=== PATIENT | female | born 1945 ===

== ENCOUNTER 2018-06-20 13:46 | Outpatient (REF) | payer MEDICARE, BC, SELFPAY ==
[2018-06-20 21:11] LABS: ALT 40 U/L (12-78); AST 22 U/L (15-37); Alkaline Phosphatase 55 U/L (46-116); Anion Gap 9.7 mmol/L (3-11); BUN 25 mg/dL (7-18); Bilirubin, Total 0.5 mg/dL (0.2-1.0); CO2 27.3 mmol/L (21.0-32.0); CREATININE 1.18 mg/dL (0.55-1.02); Chloride 102 mmol/L (98-107); Cholesterol 246 mg/dL (50-200); Estimated GFR 45.15 (mL/min/1.73m2); Glucose 93 mg/dL (70-100); HDL Cholesterol 52 mg/dL (40-60); LDL CHOLESTEROL 177 mg/dL (<100); Potassium 4.8 mmol/L (3.5-5.1); Sodium 139 mmol/L (136-145); Total Protein 7.5 g/dL (6.4-8.2); Triglyceride 91 mg/dL (30-150)
== END 2018-06-20 14:06 ==
LOC: NCHCN 13:46
PROVIDERS: PCP Nurse Practitioner Family; Visit Provider Nurse Practitioner Family
DX: E78.5 Hyperlipidemia, unspecified (principal); I10 Essential (primary) hypertension; R25.2 Cramp and spasm; M79.606 Pain in leg, unspecified
CPT/HCPCS: 80053; 80061; 83721

== ENCOUNTER 2019-01-06 11:11 | Outpatient (REF) | payer MEDICARE, BC, SELFPAY ==
[2019-01-06 20:54] LABS: Anion Gap 11.9 mmol/L (3-11); BUN 20 mg/dL (7-18); C-Reactive Protein 0.06 mg/dL (0.0-0.3); CO2 25.1 mmol/L (21.0-32.0); CREATININE 1.06 mg/dL (0.55-1.02); Calcium 9.3 mg/dL (8.5-10.1); Chloride 103 mmol/L (98-107); Glucose 102 mg/dL (74-106); Potassium 4.5 mmol/L (3.5-5.1); Sodium 140 mmol/L (136-145)
[2019-01-06 21:47] LABS: ESR 18 mm/hr (0-30)
[2019-01-09 09:18] LABS: Cyclic Citrullinated Peptide <2.5 U/mL (<5.0)
== END 2019-01-06 11:31 ==
LOC: NCHCN 11:11
PROVIDERS: PCP Nurse Practitioner Family; Visit Provider Nurse Practitioner Family
DX: M79.641 Pain in right hand (principal); M79.642 Pain in left hand; N28.9 Disorder of kidney and ureter, unspecified; I10 Essential (primary) hypertension; E78.5 Hyperlipidemia, unspecified; M54.5 Low back pain; E66.9 Obesity, unspecified
CPT/HCPCS: 80048; 85652; 86200; 86140; 86431

== ENCOUNTER 2019-07-09 13:28 | Outpatient (REF) | payer MEDICARE, BC, SELFPAY ==
[2019-07-09 21:00] LABS: ALT 40 U/L (14-59); AST 24 U/L (15-37); Albumin 3.8 g/dL (3.4-5.0); Alkaline Phosphatase 45 U/L (46-116); BUN 26 mg/dL (7-18); Bilirubin, Total 0.5 mg/dL (0.2-1.0); CREATININE 1.23 mg/dL (0.55-1.02); Calcium 9.7 mg/dL (8.5-10.1); Calculated LDL 220 mg/dL (<100); Chloride 103 mmol/L (98-107); Cholesterol 293 mg/dL (<200); Estimated GFR 42.92 (mL/min/1.73m2); Glucose 100 mg/dL (74-106); HDL Cholesterol 49 mg/dL (40-60); Potassium 4.5 mmol/L (3.5-5.1); Sodium 138 mmol/L (136-145); Total Protein 7.2 g/dL (6.4-8.2); Triglyceride 123 mg/dL (<150)
== END 2019-07-09 13:48 ==
LOC: NCHCN 13:28
PROVIDERS: PCP Nurse Practitioner Family; Visit Provider Nurse Practitioner Family
DX: E78.5 Hyperlipidemia, unspecified (principal); I10 Essential (primary) hypertension; N28.9 Disorder of kidney and ureter, unspecified; E66.9 Obesity, unspecified
CPT/HCPCS: 80053; 80061

== ENCOUNTER 2020-06-21 14:29 | Outpatient (REF) | payer MEDICARE, BC, SELFPAY ==
[2020-06-21 21:14] LABS: ALT 48 U/L (14-59); AST 27 U/L (15-37); Albumin 4.1 g/dL (3.4-5.0); Alkaline Phosphatase 60 U/L (46-116); Anion Gap 10.3 mmol/L (3-11); BUN 25 mg/dL (7-18); Bilirubin, Total 0.6 mg/dL (0.2-1.0); CO2 26.7 mmol/L (21.0-32.0); CREATININE 1.2 mg/dL (0.55-1.02); Calcium 9.5 mg/dL (8.5-10.1); Calculated LDL 201 mg/dL (<100); Chloride 103 mmol/L (98-107); Cholesterol 280 mg/dL (<200); Estimated GFR 44.04 (mL/min/1.73m2); Glucose 97 mg/dL (74-106); HDL Cholesterol 55 mg/dL (40-60); Potassium 4.6 mmol/L (3.5-5.1); Sodium 140 mmol/L (136-145); Total Protein 7.8 g/dL (6.4-8.2); Triglyceride 123 mg/dL (<150)
== END 2020-06-21 14:30 | disposition home or self-care (01) ==
LOC: NCHCN 14:29
PROVIDERS: PCP Nurse Practitioner Family; Visit Provider Nurse Practitioner Family
DX: M79.641 Pain in right hand (principal); M79.642 Pain in left hand; N28.9 Disorder of kidney and ureter, unspecified; I10 Essential (primary) hypertension; E78.5 Hyperlipidemia, unspecified; N20.0 Calculus of kidney; E66.9 Obesity, unspecified
CPT/HCPCS: 80053; 80061

== ENCOUNTER 2020-12-26 19:17 | Outpatient (REF) | payer MEDICARE, BC, SELFPAY ==
[2020-12-26 19:52] LABS: Estimated GFR 54.35 (mL/min/1.73m2)
== END 2020-12-26 19:18 | disposition home or self-care (01) ==
LOC: NCHCN 19:17
PROVIDERS: PCP Nurse Practitioner Family; Visit Provider Nurse Practitioner Family
DX: I10 Essential (primary) hypertension (principal); N28.9 Disorder of kidney and ureter, unspecified; R20.0 Anesthesia of skin
CPT/HCPCS: 82565

== ENCOUNTER 2021-06-27 16:45 | Outpatient (REF) | payer MEDICARE, BC, SELFPAY ==
[2021-06-27 16:54] LABS: Anion Gap 10.2 mmol/L (3-11); BUN 27 mg/dL (7-18); CO2 24.8 mmol/L (21.0-32.0); Calcium 9.1 mg/dL (8.5-10.1); Chloride 104 mmol/L (98-107); Glucose 102 mg/dL (74-106); Potassium 4.2 mmol/L (3.5-5.1); Sodium 139 mmol/L (136-145)
== END 2021-06-27 16:46 | disposition home or self-care (01) ==
LOC: NCHCN 16:45
PROVIDERS: PCP Nurse Practitioner Family; Visit Provider Nurse Practitioner Family
DX: I10 Essential (primary) hypertension (principal); N28.9 Disorder of kidney and ureter, unspecified; R20.2 Paresthesia of skin; R07.9 Chest pain, unspecified; R60.0 Localized edema; E66.3 Overweight
CPT/HCPCS: 80048

== ENCOUNTER 2022-06-27 14:58 | Outpatient (REF) | payer MEDICARE, BC, SELFPAY ==
[2022-06-27 21:46] LABS: Absolute Basophil Count 0.06 10^3/uL (0.0-0.2); Absolute Eosinophil Count 0.14 10^3/uL (0.0-0.7); Absolute Lymphocyte Count 2.76 10^3/uL (1.2-3.4); Absolute Monocyte Count 0.63 10^3/uL (0.1-0.8); Absolute Neutrophil Count 2.14 10^3/uL (1.2-6.7); Eosinophils % 2.4; HCT 44.4 % (36.0-46.0); HGB 14.7 g/dL (11.2-15.7); Lymphocytes % 48.2; MCH 30.8 pg (27.0-33.0); MCHC 33.1 % (32.0-36.0); MCV 93 fL (80-95); MPV 10.8 fL (8.0-11.0); Neutrophils % 37.4; Platelet Count 182 10^3/uL (130-400); RBC 4.78 10^6/uL (3.93-5.22); RDW 12.5 % (11.7-14.6); RDW-SD 43.2 fL; WBC 5.73 10^3/uL (4.4-10.8)
[2022-06-27 22:06] LABS: ESR 28 mm/hr (0-30)
[2022-06-27 22:19] LABS: ALT 40 U/L (14-59); AST 26 U/L (15-37); Albumin 3.9 g/dL (3.4-5.0); Alkaline Phosphatase 60 U/L (46-116); Anion Gap 12.6 mmol/L (3-11); BUN 17 mg/dL (7-18); Bilirubin, Total 0.4 mg/dL (0.2-1.0); C-Reactive Protein 0.14 mg/dL (0.0-0.3); CO2 25.4 mmol/L (21.0-32.0); Calcium 9.9 mg/dL (8.5-10.1); Chloride 101 mmol/L (98-107); Creatine Kinase 69 U/L (26-192); Estimated GFR 58.75 (mL/min/1.73m2); Glucose 90 mg/dL (74-106); NT-proBNP 46 pg/mL (<300); Potassium 4.3 mmol/L (3.5-5.1); Sodium 139 mmol/L (136-145); TSH (W/Ref FT4) 1.42 uIU/mL (0.36-3.74); Total Protein 7.9 g/dL (6.4-8.2)
== END 2022-06-27 14:59 | disposition home or self-care (01) ==
LOC: NCHCN 14:58
PROVIDERS: PCP Nurse Practitioner Family; Visit Provider Nurse Practitioner Family
DX: R07.9 Chest pain, unspecified (principal)
CPT/HCPCS: 80053; 82550; 85652; 83880; 84443; 85025; 86140

== ENCOUNTER 2023-06-10 16:06 | Outpatient (REF) | payer MEDICARE, BC, SELFPAY ==
[2023-06-10 15:02] LABS: ALT 37 U/L (14-59); AST 23 U/L (15-37); Albumin 3.8 g/dL (3.4-5.0); Alkaline Phosphatase 59 U/L (46-116); Anion Gap 11.3 mmol/L (3-11); BUN 15 mg/dL (7-18); Bilirubin, Total 0.5 mg/dL (0.2-1.0); CO2 26.7 mmol/L (21.0-32.0); CREATININE 0.9 mg/dL (0.55-1.02); Calcium 9.4 mg/dL (8.5-10.1); Calculated LDL 206 mg/dL (<100); Chloride 103 mmol/L (98-107); Cholesterol 293 mg/dL (<200); Estimated GFR 66.26 (mL/min/1.73m2); Glucose 102 mg/dL (74-106); HDL Cholesterol 54 mg/dL (40-60); Potassium 4.8 mmol/L (3.5-5.1); Sodium 141 mmol/L (136-145); Total Protein 7.6 g/dL (6.4-8.2); Triglyceride 165 mg/dL (<150)
== END 2023-06-10 16:07 | disposition home or self-care (01) ==
LOC: NCHCN 16:06
PROVIDERS: PCP Nurse Practitioner Family; Visit Provider Nurse Practitioner Family
DX: E78.5 Hyperlipidemia, unspecified (principal); I10 Essential (primary) hypertension
CPT/HCPCS: 80053; 80061

== ENCOUNTER 2023-09-17 15:06 | Outpatient (REF) | payer MEDICARE, BC, SELFPAY ==
--- OUTSIDE RECORDS SUMMARY | 2023-09-17 15:08 | XMS_ITS | Continuity of Care Document ---
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 Name Role Phone BISHNU OH APRN Primary Care Physician Encounter [facility] NBR [id number] Date(s): 07/27/22 - 07/27/[address] [id number]- [place] Discharge Disposition: Home or Self Care Attending Physician: Izabella Duron MD, FACC, FACP, FASNC, FASE, FSCCT Admitting Physician: Izabella Duron MD, FACC, FACP, FASSAYDA, FASJocelyne, FSCCT Referring Physician: BISHNU OH APRN Allergies, Adverse Reactions, Alerts Substance Reaction Severity Status erythromycin Unknown Active sulfa drugs Unknown Active iodine Unknown Mild Active Betadine Unknown Active Influenza Virus Vaccine Unknown Severe Acti ve Latex Unknown Moderate Active Geranium Unknown Severe Active Dust Unknown Active Medications calcium (as carbonate) 500 mg oral tablet 0 Refill(s) Start Date: 02/28/22 Status: Ordered doxycycline hyclate 100 mg oral capsule 100 mg = 1 cap, Oral, BID, # 14 cap, 0 Refill(s) Start Date: 02/28/22 Stop Date: 03/07/22 Status: Ordered Fish Oil oral capsule 1 cap, Oral, Daily, # 100 cap, 0 Refill(s) Start Date: 02/28/22 Status: Ordered losartan 100 mg oral tablet 0 Refill(s) Start Date: 02/28/22 Status: Ordered ProAir HFA 90 mcg/inh inhalation aerosol 1 puffs, Inhale, every 4 hr, PRN as needed for wheezing, # 8.5 g, 0 Refill(s) Start Date: 02/28/22 Status: Ordered Vital Signs Most recent to oldest [Reference Range]: 1 Weight 79 kg (07/25/22 2:45 PM) Height 168 cm (07/25/22 2:45 PM) Social History Social History Type Response Tobacco Never tobacco user T obacco Use:. Sex Patient Care team information Care Team Personnel Name: BISHNU OH APRN Position: No Access Member Role: Primary Care Physician Address: Address: [address] [place] [address]- Care Team Related Persons Name: LINSEY BAIN
--- OUTSIDE RECORDS SUMMARY | 2023-09-17 15:08 | XMS_ITS | Continuity of Care Document ---
Author Organization [facility] Address [address] [place] [id number] Encounter LTTL_NH FIN NBR [id number] Date(s): 02/28/22 - 02/28/[address] [id number] Encounter Diagnosis Acute bronchitis(Discharge Diagnosis) - 02/28/22 Discharge Disposition: Home or Self Care Attending Physician: Kaylee Miguel MD Admitting Physician: Kaylee Miguel MD Allergies, Adverse Reactions, Alerts Substance Reaction Severity Status erythromycin Unknown Active sulfa drugs Unknown Active Betadine Unknown Active Dust Unknown Active Functional Status 02/28/22 Other exposure to Infectious Disease COV ID-19 Symptoms Present Medications calcium (as carbonate) 500 mg oral [...] 0 Refill(s) Start Date: 02/28/22 Status: Ordered Mental Status 02/28/22 Eye Opening Response [place] Spontaneous ly Best Verbal Response [place] Oriented Best Motor Response [place] Obeys comman ds [place] Coma Score 15 Results Laboratory List Name Date SARS-CoV-2 (Covid-19) AG (Bernice) POCT Most recent to oldest [Reference Range]: 1 SARS-CoV or CoV-2 (COVID-19) Ag (Bernice) [Negative] Negative (02/28/22 9:02 AM) Employed in healthcare? Unknown *NA* (02/28/22 9:02 AM) Symptomatic as defined by CDC? Unknown *NA* (02/28/22 9:02 AM) Date of onset (Lab) Unknown *NA* (02/28/22 9:02 AM) Hospitalized due to COVID-19? Unknown *NA* (02/28/22 9:02 AM) In ICU? Unknown *NA* (02/28/22 9:02 AM) Group care resident? Unknown *NA* (02/28/22 9:02 AM) status? Unknown *NA* (02/28/22 9:02 AM) Radiology Reports * Exam Date Time Procedure Performing Provider Status 02/28/22 9:50 AM XR Chest 2 Views Alma Molina; Melissa (Verified) Notes: (XR Chest 2 Views) Reason For Exam: cough XR Chest 2 Views EXAM DESCRIPTION: XR Chest 2 Views 02/28/2022 INDICATION: COUGH COMPARISON: None available FINDINGS: Clear lungs with no focal infiltrate or pulmonary edema. Normal cardiomediastinal contour. Normal pleural margins with no pleural effusion or pneumothorax. Spondylotic changes of the dorsal spine. IMPRESSION: No active chest disease. JOB #: [id number] Final Signed by: Julio Spence MD Signed (Electronic Signature): 02/28/2022 10:04 am Vital Signs Most recent to oldest [Reference Range]: 1 2 Temperature Temporal Artery [36-38 Deg C ] 36.4 Deg C (02/28/22 8:48 AM) Peripheral Pulse Rate [60-100 bpm] 96 bp m (02/28/22 10:30 AM) 108 bpm *HI* (02/28/22 8:48 AM) Respiratory Rate [12-24 br/min] 18 br/mi n (02/28/22 10:30 AM) 20 br/min (02/28/22 8:48 AM) Blood Pressure [90-140/60-90 mmHg] 126/7 2mmHg (02/28/22 10:30 AM) 122/88mmHg (02/28/22 8:48 AM) Weight Dosing 77.00 kg (02/28/22 9:07 AM) Weight Estimated 77.00 kg (02/28/22 8:48 AM) Height/Length Dosing 170.000 cm (02/28/22 9:07 AM) Height/Length Estimated 170.000 cm (02/28/22 8:48 AM) Social History Social History Type Response Tobacco Never tobacco user T obacco Use:. Sex Hospital Discharge Instructions Patient Education 02/28/2022 09:43:06 Acute Bronchitis, Adult Acute Bronchitis, Adult Acute bronchitis is sudden or acute swelling of the air tubes (bronchi) in the lungs. Acute bronchitis causes these tubes to fill with mucus, which can make it hard to breathe. It can also cause coughing or wheezing. In adults, acute bronchitis usually goes away within 2 weeks. A cough caused by bronchitis may lastup to 3 weeks. Smoking, allergies, and asthma can make the condition worse. What are the causes? This condition can be caused by germs and by substances that irritate the lungs, including: ??? Cold and flu viruses. The most common cause of this condition is the virus that causes the common cold. ??? Bacteria. ??? Substances that irritate the lungs, including: ??? Smoke from cigarettes and other forms of tobacco. ??? Dust and pollen. ??? Fumes from chemical products, gases, or burned fuel. ??? Other materials that pollute indoor or outdoor air. ??? Close contact with someone who has acute bronchitis. What increases the risk? The following factors may make you more likely to develop this condition: ??? A weak body's defense system, also called the immune system. ??? A condition that affects your lungs and breathing, such as asthma. What are the signs or symptoms? Common symptoms of this condition include: ??? Lung and breathing problems, such as: ??? Coughing. This may bring up clear, yellow, or green mucus from your lungs (sputum). ??? Wheezing. ??? Having too much mucus in your lungs (chest congestion). ??? Having shortness of breath. ??? A fever. ??? Chills. ??? Aches and pains, including: ??? Tightness in your chest and other body aches. ??? A sore throat. How is this diagnosed? This condition is usually diagnosed based on: ??? Your symptoms and medical history. ??? A physical exam. You may also have other tests, including tests to rule out other conditions, such as pneumonia. These tests include: ??? A test of lung function. ??? Test of a mucus sample to look for the presence of bacteria. ??? Tests to check the oxygen level in your blood. ??? Blood tests. ??? Chest X-ray. How is this treated? Most cases of acute bronchitis clear up over time without treatment. Your health care provider may recommend: ??? Drinking more fluids. This can thin your mucus, which may improve your breathing. ??? Using a device that gets medicine into your lungs (inhaler) to help improve breathing and control coughing. ??? Using a vaporizer or a humidifier. These are machines that add water to the air to help you breathe better. ??? Taking a medicine for a fever. ??? Taking a medicine that thins mucus and clears congestion (expectorant). ??? Taking a medicine that prevents or stops coughing (cough suppressant). Follow these instructions at home: Activity ??? Get plenty of rest. ??? Return to your normal activities as told by your health care provider. Ask your health care provider what activities are safe for you. Lifestyle ??? Drink enough fluid to keep your urine pale yellow. ??? Do not drink alcohol. ??? Do not use any products that contain nicotine or tobacco, such as cigarettes, e-cigarettes, andchewing tobacco. If you need help quitting, ask your health care provider. Be aware that: ??? Your bronchitis will get worse if you smoke or breathe in other people's smoke (secondhand smoke). ??? Your lungs will heal faster if you quit smoking. General instructions ??? Take ryzy-ftp-jhkmbgl and prescription medicines only as told by your health care provider. ??? Use an inhaler, vaporizer, or humidifier as told by your health care provider. ??? If you have a sore throat, gargle with a salt-water mixture 3???4 times a day or as needed. To make a salt-water mixture, completely dissolve ?1 tsp (3???6 g) of salt in 1 cup (237 mL) of warm water. ??? Take two teaspoons of honey at bedtime to lessen coughing at night. ??? Keep all follow-up visits as told by your health care provider. This is important. How is this prevented? To lower your risk of getting this condition again: ??? Wash your hands often with soap and water. If soap and water are not available, use hand atlassian administrator. ??? Avoid contact with people who have cold symptoms. ??? Try not to touch your mouth, nose, or eyes with your hands. ??? Avoid places where there are fumes from chemicals. Breathing these fumes will make your condition worse. ??? Get the flu shot every year. Contact a health care provider if: ??? Your symptoms do not improve after 2 weeks of treatment. ??? You vomit more than once or twice. ??? You have symptoms of dehydration such as: ??? Dark urine. ??? Dry skin or eyes. ??? Increased thirst. ??? Headaches. ??? Confusion. ??? Muscle cramps. Get help right away if you: ??? Cough up blood. ??? Feel pain in your chest. ??? Have severe shortness of breath. ??? Faint or keep feeling like you are going to faint. ??? Have a severe headache. ??? Have fever or chills that get worse. These symptoms may represent a serious problem that is an emergency. Do not wait to see if the symptoms will go away. Get medical help right away. Call your local emergency services (911 in the [place] Do not drive yourself to the hospital. Summary ??? Acute bronchitis is sudden (acute) inflammation of the air tubes (bronchi) between the windpipeand the lungs. In adults, acute bronchitis usually goes away within 2 weeks, although coughing may last 3 weeks or longer. ??? Take qiio-cwt-gtuiaky and prescription medicines only as told by your health care provider. ??? Drink enough fluid to keep your urine pale yellow. ??? Contact a health care provider if your symptoms do not improve after 2 weeks of treatment. ??? Get help right away if you cough up blood, faint, or have chest pain or shortness of breath. This information is not intended to replace advice given to you by your health care provider. Make sure you discuss any questions you have with your health care provider. Document Revised: 12/28/2020 Document Reviewed: 08/21/2019 [employer] Patient Education ?? 2021 [employer]. Follow Up Care 02/28/2022 08:48:18 With:primary care physician Address: When:3 to 5 days Physician Emergency department Note * Kaylee Miguel MD: PERFORM Event Display: ED Note Physician Authored Date: [id number] RICCI VENEGAS :1945 Age:77 years Sex:Female Visit Date:02/28/2022 Basic Information Time Seen: Kaylee Miguel MD / 02/28/2022 09:35 Chief Complaint Pt c/o cough and congestion for past week. Thinks she has PNA. History Of Present Illness: This patient is a 77-year-old female presents emergency department today for evaluation of cough.??Patient states that she started having cough about 1 week ago and last night started having some production of greenish colored sputum.?? She had a mild fever last night but otherwise has not had sustained fever.?? The patient??has not had any known sick contacts. ??She states that??the way she feels now feels similar to when she had pneumonia in the past. ??She has not had any lower extremity swelling. ??She denies any prior??lung or heart disease.?? No vomiting or diarrhea.?? States she does have some throat pain due to the coughing. Review of Systems: CONSTITUTIONAL:??+fevers or chills. EYES:??No change in vision. ENT:??+sore throat. ??No headache. ??No neck pain. CARDIOVASCULAR:??No chest pain, palpitations or passing out episodes. RESPIRATORY:??+cough, + shortness of breath no hemoptysis. GI:??No abdominal pain. No nausea, vomiting or diarrhea. :??No change in urination. SKIN:??No rash. NEUROLOGIC:??No numbness or weakness. MUSCULOSKELETAL:??No swelling or pain. PSYCHIATRIC:??No depression. LYMPH:??No swelling. Review of systems otherwise as stated in HPI Physical Exam Vitals & Measurements T:??36.4?C ??(Temporal Artery)?? HR:??108??(Peripheral)?? RR:??20?? BP:??122/88?? SpO2:??96%?? HT:??170.000??cm?? WT:??77.00??kg??(Estimated)?? General: ??AAOx3. ??GCS15. ??No acute distress, answering questions appropriately. Head: ??Atraumatic; Normocephalic Eye: ??PERRLA; EOMI; no scleral icterus / pallor ENT: moist mucous membranes; no epistaxis. No stridor. Neck: ??Active ROM intact; Trachea Midline. ??No JVD. ??No meningismus appreciated. Skin: Warm, dry Chest:??Coarse cough,??wheezing with rhonchi bilaterally. Heart: RRR; no murmur, rub, or gallop Abdomen: ??Soft, non-tender, non-distended, no guarding, rebound, or rigidity. No Hepatosplenomegaly Musculoskeletal: ??ROM intact of all extremities/joints without discomfort. ??Sensation grossly intact throughout. ??No obvious deformity. ??Strength Intact 5/5 throughout. ?? Neuro: Alert and oriented. Answering questions appropriately with clear speech. Motor and sensory grossly normal in all extremities.?? Medical Decision Making: Patient is 77-year-old female presents today for evaluation of cough. ??The patient was concerned that she developed mild pneumonia because she had some greenish colored sputum today.?? On exam the patient had wheezing and rhonchi bilaterally. ??I did do a chest x-ray which was negative. ??COVID test was also negative.?? My suspicion is that this likely started as a viral illness however given her increased??production of sputum in addition to her physical exam I think it would be reasonable totreat her for bronchitis.?? Patient will be given a prescription for doxycycline.?? The patient wasgiven an albuterol treatment here in the emergency department and on review auscultation prior to discharge she??is significantly more clear. ??I will also give her a prescription for??ProAir inhaler.?? She was comfortable with plan for discharge home.?? She has not had any episodes of hypoxia??andher ambulatory O2 sat was 96 to 97%. Procedure No Qualifying Data Assessment/Plan 1.??Acute bronchitis??J20.9 Ordered: doxycycline hyclate 100 mg oral capsule, 100 mg = 1 cap, Oral, BID, # 14 cap, 0 Refill(s) ?? Orders: Discharge Patient, 02/28/22 10:45:00 EST Patient Education Acute Bronchitis, Adult Follow Up With When Contact Information primary care physician Within 3 to 5 days Additional Instructions: Medication Reconciliation New Prescription doxycycline (doxycycline hyclate 100 mg oral capsule)1 Capsules Oral (given by mouth) 2 times a dayfor 7 Days. Refills: 0. ?? Unchanged calcium carbonate (calcium (as carbonate) 500 mg oral tablet) ?? losartan (losartan 100 mg oral tablet) ?? omega-3 polyunsaturated fatty acids (Fish Oil oral capsule)1 Capsules Oral (given by mouth) every day. Problem List/Past Medical History Ongoing No qualifying data Historical No qualifying data Medication Administration Given albuterol, 2.5 mg, NEB Allergies Betadine Dust erythromycin sulfa drugs Social History Electronic Cigarette/Vaping Electronic Cigarette Use: Never. Tobacco Never tobacco user Tobacco Use:. Diagnostic Results XR Chest 2 Views 02/28/2022 10:06 EST XR Chest 2 Views ?? 02/28/22 10:04:07 EXAM DESCRIPTION: XR Chest 2 Views ?? 02/28/2022 ? INDICATION: COUGH ?? COMPARISON: None available ?? FINDINGS: Clear lungs with no focal infiltrate or pulmonary edema. Normal cardiomediastinal contour. Normal pleural margins with no pleural effusion or pneumothorax. Spondylotic changes of the dorsal spine. ?? IMPRESSION: No active chest disease. ? JOB #: [id number] Electronically Signed By: ?? Signed By: Julio Spence MD Lab Results Infectious Disease?? LATEST RESULTS?? SARS-CoV or CoV-2 (COVID-19) Ag (Bernice)?? 02/28/22 09:02?? Negative?? Employed in healthcare??? 02/28/22 09:02?? Unknown?? Symptomatic as defined by CDC??? 02/28/22 09:02?? Unknown?? Date of onset (Lab)?? 02/28/22 09:02?? Unknown?? Hospitalized due to COVID-19??? 02/28/22 09:02?? Unknown?? In ICU??? 02/28/22 09:02?? Unknown?? Group care resident??? 02/28/22 09:02?? Unknown?? status??? 02/28/22 09:02?? Unknown? Electronically Signed on 03/01/22 08:16 AM Kaylee Miguel MD Emergency department Discharge instructions * Kaylee Miguel MD: PERFORM Event Display: ED Discharge Information Authored Date: [id number] RICCI VENEGAS :1945 Age:77 years Sex:Female Visit Date:02/28/2022 Discharge Instructions We would like to thank you for allowing us to assist you with your healthcare needs. The following includes patient education materials and information regarding your injury/illness. Diagnosis from Today's Visit Acute bronchitis Discharge Vitals Temperature??(Temporal Artery) 97.5 ??F (36.4 ??C) Heart Rate??(Peripheral) 108 Respiratory Rate?? 20 Blood Pressure?? 122/88?? Height?? 66.93 in (170.000 cm) Weight??(Estimated) 169.78 lb (77.00 kg) Allergies Betadine Dust erythromycin sulfa drugs What to Do Next You Need to Schedule the Following Appointments Follow Up with??primary care physician When:??Within 3 to 5 days You were treated today on an emergency basis; it may be epperson to contact your primary care provider to notify them of your visit today. You may have been referred to your regular doctor or a specialist, please follow up as instructed. If your condition worsens or you can't get in to see the doctor, contact the Emergency Department. Medications What How Much When Why Instructions Next Dose New doxycycline (doxycycline hyclate 100 mg oral capsule) 1 Capsules Oral (given by mouth) 2 times a day Acute bronchitis Duration: 7 Days Printed Prescription Unchanged calcium carbonate (calcium (as carbonate) 500 mg oral tablet) Unchanged losartan (losartan 100 mg oral tablet) Unchanged omega-3 polyunsaturated fatty acids (Fish Oil oral capsule) 1 Capsules Oral (given by mouth) Every day Education Materials Acute Bronchitis, Adult Acute bronchitis is sudden or acute swelling of the air tubes (bronchi) in the lungs. Acute bronchitis causes these tubes to fill with mucus, which can make it hard to breathe. It can also cause coughing or wheezing. In adults, acute bronchitis usually goes away within 2 weeks. A cough caused by bronchitis may lastup to 3 weeks. Smoking, allergies, and asthma can make the condition worse. What are the causes? This condition can be caused by germs and by substances that irritate the lungs, including: ? Cold and flu viruses. The most common cause of this condition is the virus that causes the common cold. ? Bacteria. ? Substances that irritate the lungs, including: ? Smoke from cigarettes and other forms of tobacco. ? Dust and pollen. ? Fumes from chemical products, gases, or burned fuel. ? Other materials that pollute indoor or outdoor air. ? Close contact with someone who has acute bronchitis. What increases the risk? The following factors may make you more likely to develop this condition: ? A weak body's defense system, also called the immune system. ? A condition that affects your lungs and breathing, such as asthma. What are the signs or symptoms? Common symptoms of this condition include: ? Lung and breathing problems, such as: ? Coughing. This may bring up clear, yellow, or green mucus from your lungs (sputum). ? Wheezing. ? Having too much mucus in your lungs (chest congestion). ? Having shortness of breath. ? A fever. ? Chills. ? Aches and pains, including: ? Tightness in your chest and other body aches. ? A sore throat. How is this diagnosed? This condition is usually diagnosed based on: ? Your symptoms and medical history. ? A physical exam. You may also have other tests, including tests to rule out other conditions, such as pneumonia. These tests include: ? A test of lung function. ? Test of a mucus sample to look for the presence of bacteria. ? Tests to check the oxygen level in your blood. ? Blood tests. ? Chest X-ray. How is this treated? Most cases of acute bronchitis clear up over time without treatment. Your health care provider may recommend: ? Drinking more fluids. This can thin your mucus, which may improve your breathing. ? Using a device that gets medicine into your lungs (inhaler) to help improve breathing and control coughing. ? Using a vaporizer or a humidifier. These are machines that add water to the air to help you breathebetter. ? Taking a medicine for a fever. ? Taking a medicine that thins mucus and clears congestion (expectorant). ? Taking a medicine that prevents or stops coughing (cough suppressant). Follow these instructions at home: Activity ? Get plenty of rest. ? Return to your normal activities as told by your health care provider. Ask your health care provider what activities are safe for you. Lifestyle ? Drink enough fluid to keep your urine pale yellow. ? Do not drink alcohol. ? Do not use any products that contain nicotine or tobacco, such as cigarettes, e- cigarettes, and chewing tobacco. If you need help quitting, ask your health care provider. Be aware that: ? Your bronchitis will get worse if you smoke or breathe in other people's smoke (secondhand smoke). ? Your lungs will heal faster if you quit smoking. General instructions ? Take dumd-oue-vceqmhi and prescription medicines only as told by your health care provider. ? Use an inhaler, vaporizer, or humidifier as told by your health care provider. ? If you have a sore throat, gargle with a salt-water mixture 3???4 times a day or as needed. To makea salt-water mixture, completely dissolve ?1 tsp (3???6 g) of salt in 1 cup (237 mL) of warm water. ? Take two teaspoons of honey at bedtime to lessen coughing at night. ? Keep all follow-up visits as told by your health care provider. This is important. How is this prevented? To lower your risk of getting this condition again: ? Wash your hands often with soap and water. If soap and water are not available, use hand atlassian administrator. ? Avoid contact with people who have cold symptoms. ? Try not to touch your mouth, nose, or eyes with your hands. ? Avoid places where there are fumes from chemicals. Breathing these fumes will make your condition worse. ? Get the flu shot every year. Contact a health care provider if: ? Your symptoms do not improve after 2 weeks of treatment. ? You vomit more than once or twice. ? You have symptoms of dehydration such as: ? Dark urine. ? Dry skin or eyes. ? Increased thirst. ? Headaches. ? Confusion. ? Muscle cramps. Get help right away if you: ? Cough up blood. ? Feel pain in your chest. ? Have severe shortness of breath. ? Faint or keep feeling like you are going to faint. ? Have a severe headache. ? Have fever or chills that get worse. These symptoms may represent a serious problem that is an emergency. Do not wait to see if the symptoms will go away. Get medical help right away. Call your local emergency services (911 in the [place] Do not drive yourself to the hospital. Summary ? Acute bronchitis is sudden (acute) inflammation of the air tubes (bronchi) between the windpipe andthe lungs. In adults, acute bronchitis usually goes away within 2 weeks, although coughing may last3 weeks or longer. ? Take sdwe-efa-dktweju and prescription medicines only as told by your health care provider. ? Drink enough fluid to keep your urine pale yellow. ? Contact a health care provider if your symptoms do not improve after 2 weeks of treatment. ? Get help right away if you cough up blood, faint, or have chest pain or shortness of breath. This information is not intended to replace advice given to you by your health care provider. Make sure you discuss any questions you have with your health care provider. Document Revised: 12/28/2020 Document Reviewed: 08/21/2019 [employer] Patient Education ?? 2021 [employer] Tests Performed Radiology XR Chest 2 Views 02/28/2022 10:06 EST Medications and Immunizations Administered Given albuterol, 2.5 mg, NEB Lab Test Name Test Result Date/Time SARS-CoV or CoV-2 (COVID-19) Ag (Bernice) Negative 02/28/2022 09:02 EST Employed in healthcare? Unknown 02/28/2022 09:02 EST Symptomatic as defined by CDC? Unknown 02/28/2022 09:02 EST Date of onset (Lab) Unknown 02/28/2022 09:02 EST Hospitalized due to COVID-19? Unknown 02/28/2022 09:02 EST In ICU? Unknown 02/28/2022 09:02 EST Group care resident? Unknown 02/28/2022 09:02 EST status? Unknown 02/28/2022 09:02 EST Patient/Vascular Technician Signature Patient Name:RICCI VENEGAS I have received this information and my questions have been answered. Patient/Vascular Technician Name: Patient/Vascular Technician Signature: Relationship to Patient: Witness Name/Signature: Date: Electronically Signed on: 02/28/2022 10:44 ESTSigned by:AF XR Chest 2 Views * Julio Spence MD: VERIFY, VERIFY Event Display: Report EXAM DESCRIPTION: XR Chest 2 Views 02/28/2022 INDICATION: COUGH COMPARISON: None available FINDINGS: Clear lungs with no focal infiltrate or pulmonary edema. Normal cardiomediastinal contour. Normal pleural margins with no pleural effusion or pneumothorax. Spondylotic changes of the dorsal spine. IMPRESSION: No active chest disease. JOB #: [id number] Final Signed by: Julio Spence MD Signed (Electronic Signature): 02/28/2022 10:04 am
--- OUTSIDE RECORDS SUMMARY | 2023-09-17 15:09 | XMS_ITS | Encounter Summary ---
Author Organization [facility] Address [address] [place] [address] Care Team Providers Care Charge Loader Name Role Phone Unknown, Provider Primary Care Provider Encounter Details Date Type Department Care Team (Late st Contact Info) Description 06/29/2016 Results Only [facility] [phone] Angelito Jules, [address] [place], [place] [id number] Social History Tobacco Use Types Packs/Day Years Used Date Smoking Tobacco: Never Assessed Sex and Gender Information Value Date Recorded Sex Assigned at Not on file Gender Identity Not on file Sexual Orientation Not on file documented as of this encounter Plan of Treatment Not on file documented as of this encounter Procedures Procedure Name Priority Date/Time Associated Diagnosis Comments SURGICAL PATHOLOGY Routine 06/29/2016 9:25 EDT documented in this encounter Results * SURGICAL PATHOLOGY (06/29/2016 9:25 EDT) Pathology Report: SURGICAL PATHOLOGY REPORT Reports generated via electronic interface contain original data; however they are lacking the format of the original report. Caution should be taken when reading/interpreting unformatted reports. Name: ? MORENITA HARDIN ? Accession #: ? [id number] ? : ? 1945 (Age: 71) ??F ? Collect Date: ? 06/29/2016 ? Location: ? [facility] ? Receive Date: ? 07/02/2016 ? Provider: ANGELITO JULES DO Copy to: LANETTE DIAZ MD ? Final Pathologic Diagnosis: SKIN OF CHEEK, RIGHT MID, SHAVE BIOPSY: - Actinic keratosis, hypertrophic type. - Actinic keratosis present at peripheral and deep tissue edges. Microscopic Description: The stratum corneum is markedly thickened by orthohyperkeratosis and confluent parakeratosis. ??The epidermis is hyperplastic with expansion of the stratum spinosum by enlarged keratinocytes with abundant glassy eosinophilic cytoplasm. The basal keratinocytes show a variable degree of nuclear atypia including enlargement, dispolarity, and overlap. ??The dermis is marked by solar elastosis, vascular ectasia, and a lymphohistiocytic infiltrate. ??(Dr. Ta)/[facility] Document reviewed and electronically signed by: COSTA TA MD Report ??Date: 07/04/2016 20:33 By the signature above, the attending physician certifies that he/she has personally conducted a gross and/or microscopic examination of the described specimens and rendered or confirmed the above diagnosis. Specimen(s) Received: Right mid cheek Clinical History: Non-healing skin lesion, h/o fdc sun exposure; clinical diagnosis code: D49.2 Gross Description: ? Received in formalin labelled with proper patient identification (initials L, A) and right mid cheek are three irregular shaves of granular maurice skin (0.6 x 0.2 x 0.1 cm, 0.7 x 0.2 x 0.1 cm and 1.0 x 0.9 x 0.1 cm). The margins of all three skins are inked blue. The specimen is entirely submitted in 1 (largest shave, trisected) and 2 (smaller shaves, submitted in toto). MAYURI Maria ([facility]) 07/03/2016 11:16 AM End of Report [facility] 06/29/2016 9:25 EDT 07/02/2016 9:25 EDT Angelito Jules DO PATHOLOGY ORDER FRANCISCO J [facility] [address] [place] [address] documented in this encounter Visit Diagnoses Not on filedocumented in this encounter Care Teams Charge Loader Relationship Specialty Start Date End Date Unknown, Provider, PCP - General 07/03/16 documented as of this encounter
--- OUTSIDE RECORDS SUMMARY | 2023-09-17 15:09 | XMS_ITS | Referral Summary ---
Author Organization [facility] Address [address] [place] [address] Care Team Providers Care Studio Receptionist Name Role Phone Unknown, Provider Primary Care Provider Social History Tobacco Use Types Packs/Day Years Used Date Smoking Tobacco: Never Assessed Sex and Gender Information Value Date Recorded Sex Assigned at Not on file Gender Identity Not on file Sexual Orientation Not on file Plan of Treatment Not on file Care Teams Studio Receptionist Relationship Specialty Start Date End Date Unknown, Provider, PCP - General 07/03/16
--- OUTSIDE RECORDS SUMMARY | 2023-09-17 15:09 | XMS_ITS | Encounter Summary ---
Author Organization [facility] Address [address] [place] [address] Care Team Providers Care Poker Prop Player Name Role Phone Unavailable Primary Care Provider Unavailabl e Encounter Details Date Type Department Care Team (Late st Contact Info) Description 01/16/2012 Results Only [facility] - [facility] [address] [place] [address] Jacque Goodwin MD [address] [place] [address] Social History Tobacco Use Types Packs/Day Years Used Date Smoking Tobacco: Never Assessed Sex and Gender Information Value Date Recorded Sex Assigned at Not on file Gender Identity Not on file Sexual Orientation Not on file documented as of this encounter Plan of Treatment Not on file documented as of this encounter Procedures Procedure Name Priority Date/Time Associated Diagnosis Comments PAP TEST- RESULT ONLY Routine 01/16/2012 0:00 EST documented in this encounter Results * PAP TEST- RESULT ONLY (01/16/2012 0:00 EST) Pathology Report: CYTOPATHOLOGY REPORT Reports generated via electronic interface contain original data; however they are lacking the format of the original report. Caution should be taken when reading/interpreti ng unformatted reports. Name: ? MORENITA HARDIN ? Accession #: ? [id number] ? : ? 1945 (Age: 67) ??F ?Collect Date: ? 01/16/2012 ? Location: ? [facility] ? Receive Date: ? 01/17/2012 ? Provider: JACQUE GOODWIN MD Copy to: ? Final Report SPECIMEN ADEQUACY ? Satisfactory for Evaluation - transformation zone component present - scant squamous epithelial component secondary to excessive inflammation GENERAL CATEGORIZATION ? Negative for Intraepithelial Lesion or Malignancy ?? Menstrual/Pregnanc y Status: ??Post Menopausal Other: Additional clinical information: hasn't had pap in >10 years Specimen/Source: ??Pap Test, Cervix/Endocervix, ThinPrep Imaging System with manual evaluation Document reviewed and electronically signed by: ? MENDOZA Landin(ASCP) ? Report ??Date: 01/24/2012 13:08 HPV with Pap Test ? Date Ordered: ? 01/24/2012 ? Status: ?? Signed Out ?Date Complete: ? 01/28/2012 ? By: ??System Interface ? Date Reported: ? 01/28/2012 ? Interpretation RESULT: Negative for HPV. No E6 or E7 mRNA is detected from HPV types 16,18,31,33,35, 39,45,51,52,56,58, 59,66, and 68 by angular js developer mediated amplification. Comments Document reviewed and electronically signed by: ? System Interface ? Report date: 01/28/2012 By the signature above, the attending physician certifies that he/she has personally conducted a gross and/or microscopic examination of the described specimens and rendered or confirmed the above diagnosis. End of Report [facility] 01/16/2012 01/17/2012 Jacque Goodwin MD PATHOLOGY ORDERABLES Performing Organization Address City/State/[facility] Co de Phone Number [facility] [address] [place] [address] documented in this encounter Visit Diagnoses Not on filedocumented in this encounter
--- OUTSIDE RECORDS SUMMARY | 2023-09-17 15:09 | XMS_ITS | Encounter Summary ---
Author Organization [facility] Address [address] [place] [address] Care Team Providers Care Dust Collector Attendant Name Role Phone Unavailable Primary Care Provider Unavailabl e Encounter Details Date Type Department Care Team (Latest Contact Info) Description 06/29/2016 11:38 EDT - 06/29/2016 23:59 EDT Hospital Encounter [address] [address] Unknown, Provider, Discharge Disposition: Home or Self Care Social History Tobacco Use Types Packs/Day Years Used Date Smoking Tobacco: Never Assessed Sex and Gender Information Value Date Recorded Sex Assigned at Not on file Gender Identity Not on file Sexual Orientation Not on file documented as of this encounter Discharge Disposition Disposition Code Departure Means Destination Home or Self Custodial documented in this encounter Plan of Treatment Not on file documented as of this encounter Visit Diagnoses Not on filedocumented in this encounter
--- OUTSIDE RECORDS SUMMARY | 2023-09-17 15:09 | XMS_ITS | Encounter Summary ---
Author Organization [facility] Address [address] [place] [address] Care Team Providers Care County Home Demonstrator Name Role Phone Unknown, Provider Primary Care Provider Encounter Details Date Type Department Care Team (Late st Contact Info) Description 01/07/2019 Lab Requisition [facility] Pathology & Laboratory Medicine - [address] [address] Unknown, Provider, Social History Tobacco Use Types Packs/Day Years Used Date Smoking Tobacco: Never Assessed Sex and Gender Information Value Date Recorded Sex Assigned at Not on file Gender Identity Not on file Sexual Orientation Not on file documented as of this encounter Plan of Treatment Not on file documented as of this encounter Procedures Procedure Name Priority Date/Time Associated Diagnosis Comments [facility] Today 01/06/2019 10:45 EST [facility] ANTIBODIES Today 01/06/2019 10:45 EST RHEUMATOID FACTOR Today 01/06/2019 10: 45 EST documented in this encounter Results * HOLD SST (01/06/2019 10:45 EST) Hold Hold 01/07/2019 17:30 EST [facility] Blood VENOUS BLOOD / Unknown 01/06/2019 10:45 EST 01/07/2019 16:24 EST Provider Unknown LAB INFO SERVICE AND SUPPORT & PHONE RESULT [facility] [address] [place] [address] * RHEUMATOID FACTOR (01/06/2019 10:45 EST) Rheumatoid Factor 10.0 <12.5 IU/mL 01/09/2019 11:02 EST [facility] Blood VENOUS BLOOD / Unknown 01/06/2019 10:45 EST 01/07/2019 16:24 EST Provider Unknown CHEMISTRY & BLOOD GA S ORDERABLES [facility] [address] [place] [address] * CCP ANTIBODIES (01/06/2019 10:45 EST) CCP Antibodies <2.5 <5.0 U/mL 01/09/2019 9:13 EST [facility] Blood VENOUS BLOOD / Unknown 01/06/2019 10:45 EST 01/07/2019 16:07 EST Provider Unknown IMMUNOLOGY AND SEROL OGY ORDERABLES Performing Organization Address City/[facility]/ZIP Co de Phone Number [facility] [address] [place] [address] documented in this encounter Visit Diagnoses Not on filedocumented in this encounter Care Teams County Home Demonstrator Relationship Specialty Start Date End Date Unknown, Provider, PCP - General 07/03/16 documented as of this encounter
--- OUTSIDE RECORDS SUMMARY | 2023-09-17 15:09 | XMS_ITS | Continuity of Care Document ---
Author Organization [facility] Address [address] [place] [address] Care Team Providers Care Career Placement Services Counselor Name Role Phone BISHNU OH APRN Primary Care Physician Encounter [facility] NBR [id number] Date(s): 12/26/22 - 12/26/[address] [address] [place] Encounter Diagnosis Pain in left hand(Discharge Diagnosis) - 12/26/22 Discharge Disposition: Home or Self Care Attending Physician: Glenny Swanson APRN, Admitting Physician: Glenny Swanson APRN, Allergies, Adverse Reactions, Alerts Substance Reaction Severity Status erythromycin Unknown Active povidone iodine topical Wheal Unknown Acti ve acetaminophen-oxycodone vomiting Moderate Acti ve Fluzone Unknown Unknown Active sulfa drugs Unknown Unknown Active sulfa topicals Wheal Unknown Active flu vaccines SEVERE Unknown Active iodine Unknown Unknown Unknown Active Betadine Unknown Unknown Active Influenza Virus Vaccine Unknown Severe Acti ve Latex Unknown Moderate Active Geranium Unknown Unknown Unknown Active Dust Unknown Active Medications calcium (as carbonate) 500 mg oral tablet 0 Refill(s) Start Date: 02/28/22 Status: Ordered diclofenac sodium 100 mg oral tablet, extended release 100 mg = 1 tab, Oral, Daily, # 30 tab, 3 Refill(s), Pharmacy: [facility] #[id number], 167.64, cm, 12/26/22 12:20:00 EST, Height, 79.02, kg, 12/26/22 12:21:00 EST, Weight Dosing Start Date: 12/26/22 Status: Ordered doxycycline hyclate 100 mg oral [...] 0 Refill(s) Start Date: 02/28/22 Status: Ordered Problem List Condition Confirmation Course Effective Dates Status H ealth Status Informant History of total knee arthroplasty Confirmed Active Hydronephrosis Confirmed Active Neoplastic disease Confirmed Active Ureteric stone Confirmed Active Results Radiology Reports * Exam Date Time Procedure Performing Provider Status 12/26/22 12:25 PM XR Hand Complete 3+ Views Left Jarrett Zuniga; Auth (Verified) Notes: (XR Hand Complete 3+ Views Left) Reason For Exam: Bilateral hand pain XR Hand Complete 3+ Views Left EXAM DESCRIPTION: XR Hand Complete 3+ Views Left 12/26/2022 INDICATION: BILATERAL HAND PAIN COMPARISON: None IMPRESSION: No acute fracture or dislocation PIP and DIP joint space narrowing, erosive changes and osteophyte formation with mild scattered MCP joint space narrowing. Findings may reflect erosive osteoarthritis or inflammatory arthritic process First CMC joint arthritic changes with joint space narrowing. No focal lytic or sclerotic lesion No regional radiopaque soft tissue foreign body. JOB #: [id number] Final Signed by: Julio Spence MD Signed (Electronic Signature): 12/26/2022 12:59 pm * Exam Date Time Procedure Performing Provider Status 12/26/22 12:25 PM XR Hand Complete 3+ Views Right Jarrett Zuniga; Auth (Verified) Notes: (XR Hand Complete 3+ Views Right) Reason For Exam: Bilateral hand pain XR Hand Complete 3+ Views Right EXAM DESCRIPTION: XR Hand Complete 3+ Views Right 12/26/2022 INDICATION: BILATERAL HAND PAIN COMPARISON: None IMPRESSION: No acute fracture or dislocation PIP and DIP joint space narrowing with erosive changes involving the 4th PIP joint as well as the 2nd, 3rd and 5th DIP joints with scattered IP joint osteophyte formation. Scattered mild MCP joint space narrowing. Findings may reflect inflammatory arthritic process or erosive osteoarthritis. First CMC joint arthritic changes with joint space narrowing No focal lytic or sclerotic lesion No regional radiopaque soft tissue foreign body. JOB #: [id number] Final Signed by: Julio Spence MD Signed (Electronic Signature): 12/26/2022 12:58 pm Social History Social History Type Response Tobacco Never tobacco user T obacco Use:. Sex Patient Care team information Care Team Personnel Name: BISHNU OH APRN Position: No Access Member Role: Primary Care Physician Address: Address: [address] [place] [address]- Care Team Related Persons Name: LINSEY BAIN
--- OUTSIDE RECORDS SUMMARY | 2023-09-17 15:09 | XMS_ITS | Clinical Summary ---
Author Organization [facility] Address [address] [place] [address] Care Team Providers Care Fisheries Technician Name Role Phone Unknown, Provider Primary Care Provider Social History Tobacco Use Types Packs/Day Years Used Date Smoking Tobacco: Never Assessed Sex and Gender Information Value Date Recorded Sex Assigned at Not on file Gender Identity Not on file Sexual Orientation Not on file Plan of Treatment Health Maintenance Due Date Last Done Comments Hepatitis C Screen 1945 RSV Immunization ( o r 60+ Years) (1 - 1-dose 60+ series) 2007 Fall Risk Screening 01/14/2012 COVID-19 Vaccine ( season) 2022 Care Teams Fisheries Technician Relationship Specialty Start Date End Date Unknown, Provider, PCP - General 07/03/16
--- OUTSIDE RECORDS SUMMARY | 2023-09-17 15:09 | XMS_ITS | Continuity of Care Document ---
Author Organization [facility] Address [address] [place] [address] Care Team Providers Care Dispatcher Motor Vehicle Name Role Phone BISHNU OH APRN Primary Care Physician Encounter [facility] NBR [id number] Date(s): 12/26/22 - 12/26/22 [facility] [address] [place], [place] [address] Encounter Diagnosis Arthritis of both hands(Discharge Diagnosis) - 12/26/22 Primary osteoarthritis, left hand(Discharge Diagnosis) - 12/26/22 Discharge Disposition: Home or Self Care Attending Physician: Glenny Swanson APRN, Referring Physician: BISHNU OH APRN Allergies, Adverse Reactions, Alerts Substance Reaction Severity Status erythromycin Unknown Active povidone iodine topical Wheal Unknown Acti ve acetaminophen-oxycodone vomiting Moderate Acti ve Fluzone Unknown Unknown Active sulfa drugs Unknown Unknown Active flu vaccines SEVERE Unknown Active iodine Unknown Unknown Unknown Active Betadine Unknown Unknown Active Geranium Unknown Unknown Unknown Active Dust Unknown Active sulfa topicals Wheal Unknown Active Influenza Virus Vaccine Unknown Severe Acti ve Latex Unknown Moderate Active Medications calcium (as carbonate) 500 mg oral tablet 0 Refill(s) Start Date: 02/28/22 Status: Ordered diclofenac sodium 100 mg oral tablet, extended release 100 mg = 1 tab, Oral, Daily, # 30 tab, 3 Refill(s), Pharmacy: [facility] #[id number], 167.64, cm, 12/26/22 12:20:00 EST, Height, [...] disease Confirmed Active Ureteric stone Confirmed Active Vital Signs Most recent to oldest [Reference Range]: 1 Peripheral Pulse Rate [60-100 bpm] 70 bp m (12/26/22 12:20 PM) Blood Pressure [90-140/60-90 mmHg] 112/7 5mmHg (12/26/22 12:20 PM) Mean Arterial Pressure, Cuff [70-110 mmH g] 87 mmHg (12/26/22 12:20 PM) Weight 79.02 kg (12/26/22 12:20 PM) Weight Measured (lbs) 174.209 lb (12/26/22 12:20 PM) Weight Dosing 79.020 kg (12/26/22 12:20 PM) Height 167.64 cm (12/26/22 12:20 PM) Height/Length Measured (inches) 66 inch (12/26/22 12:20 PM) Body Mass Index 28.12 kg/m2 (12/26/22 12:20 PM) Social History Social History Type Response Tobacco Never tobacco user T obacco Use:. Sex Hospital Discharge Instructions Follow Up Care 12/21/2022 15:31:44 With:Return to this practice Address: When: only if needed Physician Outpatient Note * Glenny Swanson APRN,: PERFORM Event Display: Office Clinic Note Physician Authored Date: [id number] MORENITA VENEGAS :1945 Age:77 years Sex:Female Visit Date:12/26/2022 Primary Care Physician: BISHNU OH APRN Chief Complaint left ring trigger finger History of Present Illness Morenita is a very pleasant 77-year-old woman who was kindly referred to the practice for evaluation of bilateral hand pain.?? She states the majority of her pain is located at the left long finger??PIPjoint.?? She had a crush injury to this finger years ago.?? She describes pain, swelling and stiffness.?? It is worse at night.?? She has similar??symptoms throughout the remaining digits, although not as severe.?? Occasionally some numbness and tingling.?? She occasionally uses Tylenol which is helpful.?? At night she uses Voltaren gel??and other topicals with some effect.?? She is right-hand dominant, enjoys quilting??and knitting Review of Systems Constitutional:?No??fevers,?No??chills,?No??sweats Respiratory:?No??shortness of breath,?No??cough Cardiovascular:?No??Chest pain,?No??palpitations,?No??syncope Gastrointestinal:?Nonausea,?No??vomiting,?No??diarrhea Musculoskeletal:??No??back pain,??No??neck pain,??Positive for??bilat hand pain,??No??muscle pain,??Positive for??decreased range of motion bilat hands Integumentary:?No??rash,?No??pruritus,?No??abrasions Neurologic: Alert & oriented X 4 Psychiatric:?No??anxiety,?No??depression Physical Exam Vitals & Measurements HR:??70??(Peripheral)?? BP:??112/75?? SpO2:??98%?? HT:??167.64??cm?? WT:??79.02??kg?? BMI:??28.12?? Pain Score:??4?? The patient is alert and oriented x3. ??Pleasant and cooperative. ??Well-dressed and well-groomed.?? Appears stated age and is well-nourished and well- developed.?? Examination of the bilateral hands??reveals a swelling throughout the IP joints consistent with arthritis.?? This is most pronounced atthe bilateral??ring finger PIP joints.?? Skin is intact. ??There is no erythema or warmth. ??No signs or symptoms of infection.?? Extension is intact at all digits, no triggering noted.?? Flexion??isstiff, patient is able to make a partial fist.?? Skin is warm and pink with brisk capillary refill and sensation is intact distally. Assessment/Plan 1.??Arthritis of both hands??M19.041 Morenita is a very pleasant 77-year-old woman??with bilateral hand pain. ??Today's x-rays confirm??advanced degenerative changes throughout all IP joints.?? The most symptomatic finger for her is the left long finger PIP joint.?? He has seen some relief with Tylenol??and topical pain relievers. ??She does not typically use anti-inflammatories.?? We discussed additional treatment with prescription anti-inflammatory, OT, surgery.?? At this point she would like to try a prescription anti-inflammatory, prescription for diclofenac has been sent. ??She is going to use this consistently. ??She understands to avoid other anti- inflammatories while using this, but it may safely be taken with Tylenol.?? She is going to give this a try. ??If she does not improve with the anti- inflammatory, she will let me know and we will discuss either OT versus??referral for surgical consultation.?? She is in agreement with the above plan. ??She may continue with all supportive care. ??She is encouraged to contactme with questions or concerns at any time. Ordered: diclofenac sodium 100 mg oral tablet, extended release, 100 mg = 1 tab, Oral, Daily, # 30 tab, 3 Refill(s), Pharmacy: [facility] #[id number], 167.64, cm, 12/26/22 12:20:00 EST, Height, 79.02, kg, 12/26/22 12:21:00 EST, Weight Dosing ?? Orders: XR Hand Complete 3+ Views Left, 12/26/22 12:23:00 EST, Routine, Reason: Bilateral hand pain, Transport Mode: Ambulatory, Bilateral hand pain, ABN Status: Not Required XR Hand Complete 3+ Views Right, 12/26/22 12:23:00 EST, Routine, Reason: Bilateral hand pain, Transport Mode: Ambulatory, Bilateral hand pain, ABN Status: Not Required Follow Up Instructions With When Contact Information Return to this practice Only if needed Additional Instructions: Problem List/Past Medical History Ongoing History of total knee arthroplasty Hydronephrosis Neoplastic disease Ureteric stone Historical No qualifying data Medications calcium (as carbonate) 500 mg oral tablet diclofenac sodium 100 mg oral tablet, extended release, 100 mg= 1 tab, Oral, Daily, 3 refills doxycycline hyclate 100 mg oral capsule, 100 mg= 1 cap, Oral, BID Fish Oil oral capsule, 1 cap, Oral, Daily losartan 100 mg oral tablet ProAir HFA 90 mcg/inh inhalation aerosol, 1 puffs, Inhale, every 4 hr, PRN Allergies Influenza Virus Vaccine??(Unknown) Latex??(Unknown) acetaminophen-oxycodone??(vomiting) Betadine??(Unknown) Dust Fluzone??(Unknown) Geranium??(Unknown, Unknown) erythromycin flu vaccines??(SEVERE) iodine??(Unknown, Unknown) povidone iodine topical??(Wheal) sulfa drugs??(Unknown) sulfa topicals??(Wheal) Social History Electronic Cigarette/Vaping Electronic Cigarette Use: Never. Tobacco Never tobacco user Tobacco Use:. Diagnostic Results Diagnostic Study Interpretation: X-rays of the bilateral hands obtained today are personally reviewed on the [facility] system.?? No acute fracture or dislocation.?? Significant degenerative changes are seen throughout the IP joints as evidenced by joint space narrowing, osteophyte formation and erosive changes.?? MCP joints are relatively well- preserved.?? Arthritic changes are also seen at the first CMC joints. Electronically Signed on 12/26/22 12:51 PM Glenny Swanson APRN, Patient Care team information Care Team Personnel Name: BISHNU OH APRN Position: No Access Member Role: Primary Care Physician Address: Address: [address] [place] [address] Care Team Related Persons Name: LINSEY BAIN
[2023-09-17 15:33] LABS: ALT 46 U/L (14-59); AST 27 U/L (15-37); Albumin 3.8 g/dL (3.4-5.0); Alkaline Phosphatase 55 U/L (46-116); Anion Gap 10.4 mmol/L (3-11); BUN 13 mg/dL (7-18); Bilirubin, Total 0.47 mg/dL (0.2-1.0); CO2 27.6 mmol/L (21.0-32.0); Calcium 9.7 mg/dL (8.5-10.1); Calculated LDL 161 mg/dL (<100); Chloride 103 mmol/L (98-107); Cholesterol 239 mg/dL (<200); Estimated GFR 58.39 (mL/min/1.73m2); Glucose 107 mg/dL (74-106); HDL Cholesterol 57 mg/dL (40-60); Potassium 4.3 mmol/L (3.5-5.1); Sodium 141 mmol/L (136-145); Total Protein 7.4 g/dL (6.4-8.2); Triglyceride 106 mg/dL (<150)
== END 2023-09-17 15:07 | disposition home or self-care (01) ==
LOC: NCHCN 15:06
PROVIDERS: PCP Nurse Practitioner Family; Visit Provider Nurse Practitioner Family
DX: E78.5 Hyperlipidemia, unspecified (principal)
CPT/HCPCS: 80053; 80061

== ENCOUNTER 2024-12-10 12:55 | Outpatient (REF) | payer MEDICARE, BC, SELFPAY ==
[2024-12-10 15:11] LABS: HCT 42.2 % (36.0-46.0); HGB 13.9 g/dL (11.2-15.7); MCH 30.8 pg (27.0-33.0); MCHC 32.9 % (32.0-36.0); MCV 93 fL (80-95); MPV 9.6 fL (8.0-11.0); Platelet Count 271 10^3/uL (130-400); RBC 4.52 10^6/uL (3.93-5.22); RDW 12.4 % (11.7-14.6); RDW-SD 42.8 fL; WBC 5.49 10^3/uL (4.4-10.8)
[2024-12-10 15:47] LABS: ALT 40 U/L (14-59); AST 24 U/L (15-37); Albumin 3.9 g/dL (3.4-5.0); Alkaline Phosphatase 49 U/L (46-116); Anion Gap 10.7 mmol/L (3-11); BUN 18 mg/dL (7-18); Bilirubin, Total 0.5 mg/dL (0.2-1.0); CO2 27.3 mmol/L (21.0-32.0); Calcium 9.5 mg/dL (8.5-10.1); Calculated LDL 146 mg/dL (<100); Chloride 103 mmol/L (98-107); Cholesterol 229 mg/dL (<200); Estimated GFR 75.84 (mL/min/1.73m2); Glucose 101 mg/dL (74-106); HDL Cholesterol 54 mg/dL (>or=50); Potassium 4.6 mmol/L (3.5-5.1); Sodium 141 mmol/L (136-145); Total Protein 7.7 g/dL (6.4-8.2); Triglyceride 148 mg/dL (<150)
== END 2024-12-10 12:56 | disposition home or self-care (01) ==
LOC: NCHCN 12:55
PROVIDERS: PCP Nurse Practitioner Family; Visit Provider Nurse Practitioner Family
DX: E78.5 Hyperlipidemia, unspecified (principal); I10 Essential (primary) hypertension; R53.83 Other fatigue
CPT/HCPCS: 80053; 80061; 85027